=== PATIENT | male | born 1945 | race Caucasian/White ===

== ENCOUNTER 2022-07-21 11:07 | Outpatient (CLI) | payer OTHER | END 2022-07-21 11:11 | disposition home or self-care (01) | LOC: NUCLEAR 11:07 | PROVIDERS: ATTEND Thoracic Surgery (Cardiothoracic Vascular Surgery) | DX: I73.9 Peripheral vascular disease, unspecified (principal) ==

== ENCOUNTER → 2022-07-22 | Outpatient (CLI) | payer OTHER | END | disposition home or self-care (01) | LOC: NUCLEAR 11:00 | PROVIDERS: ATTEND Thoracic Surgery (Cardiothoracic Vascular Surgery) | DX: I87.2 Venous insufficiency (chronic) (peripheral) (principal) ==